=== PATIENT | female | born 1980 | race Caucasian/White ===

== ENCOUNTER → 2018-11-05 | Outpatient (REF) | payer BC | LOC: LAB 11:56 | DX: Z02.89 Encounter for other administrative examinations (principal) ==

== ENCOUNTER → 2018-11-05 | Outpatient (CLI) | payer BC ==
[2018-11-05 12:47] LABS: URINE APPEARANCE CLOUDY; URINE COLOR YELLOW
[2018-11-05 12:48] LABS: URINE BILIRUBIN NEGATIVE (NEGATIVE); URINE BLOOD 50 ery/uL (NEGATIVE); URINE GLUCOSE NEGATIVE (NEGATIVE); URINE KETONE NEGATIVE (NEGATIVE); URINE LEUKOCYTE ESTERASE 2+ (NEGATIVE); URINE MUCUS PRESENT (NOT PRESENT); URINE NITRATE NEGATIVE (NEGATIVE); URINE PROTEIN(semi-quant) TRACE mg/dL (NEGATIVE); URINE UROBILINOGEN NORMAL (NORMAL); URINE WBC >50 /hpf (0-3)
== END ==
LOC: RAD 11:59
PROVIDERS: Family Medicine
DX: M54.5 Low back pain (principal)